=== PATIENT | male | born 1990 | race Caucasian/White ===

== ENCOUNTER 2018-10-19 18:49 | Emergency (ER) | payer SELFPAY ==
[~2018-10-19] VITALS: Ht 170.2 cm; Wt 65.8 kg
[2018-10-19 19:11] VITALS: BP 143/77
--- NOTE | 2018-10-19 19:28 | PHYS DOC ---
Past Medical History Smoking: Cigarettes, Less than 1pk/day (VIKKI GARY APRN) Adult General Chief Complaint Chief Complaint: KNEE INJURY HPI HPI Patient is a 28-year-old male presents to the ER after falling in the shower. He initially hurt his left knee while playing football on September 22. He was seen at [facility] and told to follow up with orthopedics and never has. He states the knee has continued to hurt. He rates his pain as a 8/10 and states it throbs and pamela when he tries to put weight on it. (VIKKI GARY APRN) Review of Systems Review of Systems Constitutional: Denies fever or chills [] Eyes: Denies change in visual acuity, redness, or eye pain [] HENT: Denies nasal congestion or sore throat [] Respiratory: Denies cough or shortness of breath [] Cardiovascular: No additional information not addressed in HPI [] GI: Denies abdominal pain, nausea, vomiting, bloody stools or diarrhea [] : Denies dysuria or hematuria [] Musculoskeletal: Denies back pain or joint pain with the exception of L knee. Integument: Denies rash or skin lesions [] Neurologic: Denies headache, focal weakness or sensory changes [] Endocrine: Denies polyuria or polydipsia [] Complete systems were reviewed and found to be within normal limits, except as documented in this note. (VIKKI GARY APRN) Allergies Allergies Allergies Coded Allergies Type Severity Reaction Last Updated Verified tramadol Allergy Unknown hives 10/19/18 Yes (STANFORD JOE DO) Physical Exam Physical Exam Constitutional: Well developed, well nourished, no acute distress, non-toxic appearance. [] HENT: Normocephalic, atraumatic, bilateral external ears normal, oropharynx moist, no oral exudates, nose normal. [] Eyes: PERRLA, EOMI, conjunctiva normal, no discharge. [] Neck: Normal range of motion, no tenderness, supple, no stridor. [] Cardiovascular:Heart rate regular rhythm, no murmur [] Lungs & Thorax: Bilateral breath sounds clear to auscultation [] Abdomen: Bowel sounds normal, soft, no tenderness, no masses, no pulsatile masses. [] Skin: Warm, dry, no erythema, no rash. [] Back: No tenderness, no CVA tenderness. [] Extremities: No tenderness with exception of L knee, no cyanosis, no clubbing, ROM intact, no edema with exception of L knee.[] Neurologic: Alert and oriented X 3, normal motor function, normal sensory function, no focal deficits noted. [] Psychologic: Affect normal, judgement normal, mood normal. [] (VIKKI GARY APRN) Current Patient Data Vital Signs Vital Signs Date Time Temp Pulse Resp B/P (MAP) Pulse Ox O2 Delivery O2 Flow Rate FiO2 10/19/18 19:11 97.7 86 18 143/77 (99) 98 Room Air 97.7 (STANFORD JOE DO) EKG EKG [] (VIKKI GARY APRN) Radiology/Procedures Radiology/Procedures []STANFORD JOE DO prelim interpretation. No acute fx, or dislocation. (VIKKI GARY APRN) Course & Med Decision Making Course & Med Decision Making Pertinent Labs and Imaging studies reviewed. (See chart for details) Discussed how patient needs to follow up with Ortho to get an MRI. He states he will do so. Will x-ray. Patient is agreeable. xray is negative. will d/c to follow up with orthopedics. (VIKKI GARY APRN) Dragon Disclaimer Dragon Disclaimer This electronic medical record was generated, in whole or in part, using a voice recognition dictation system. (VIKKI GARY APRN) Dragon Disclaimer The mid level provide has independently evaluated and treated the patient. I was available for consultation by the mid level provider. I agree with the care provided by the mid level provider. (STANFORD JOE DO) Departure Departure Impression: Primary Impression: Knee pain Disposition: HOME, SELF-CARE Condition: STABLE Referrals: NO PCP (PCP) Patient Instructions: Knee Pain, [id number] Additional Instructions: Please follow up with Ortho for further management. Problem Qualifiers Primary Impression: Knee pain Chronicity: acute Laterality: left Qualified Codes: M25.562 - Pain in left knee VIKKI GARY APRN October 19, 2018 19:28 STANFORD JOE DO October 20, 2018 04:44
--- NOTE | 2018-10-20 09:01 | RAD ---
Left knee, 3 views, 10/19/2018: HISTORY: Fall, knee pain No acute fracture or dislocation is identified. There is a small defect with a sclerotic rim along the articular surface of the lateral femoral condyle compatible with an old osteochondral injury. No joint effusion is seen. IMPRESSION: No acute left knee abnormality is detected. Electronically signed by: Joe Hart MD (10/20/2018 8:58 AM) [facility]
== END 2018-10-19 20:11 | disposition home or self-care (01) ==
LOC: ER 18:49
DX: M25.562 Pain in left knee (principal); F17.210 Nicotine dependence, cigarettes, uncomplicated; Z88.5 Allergy status to narcotic agent; W18.2XXA Fall in (into) shower or empty bathtub, initial encounter; Y93.89 Activity, other specified; Y92.89 Other specified places as the place of occurrence of the external cause; Y99.8 Other external cause status
CPT/HCPCS: 73562; 99284